=== PATIENT | female | born 1990 | race African-American/Black ===

== ENCOUNTER 2022-09-17 09:16 | Emergency (ER) | payer OTHER ==
[~2022-09-17] VITALS: Ht 165.1 cm; Wt 69.5 kg
--- NOTE | 2022-09-17 09:32 | NUR ---
DR TALBOT AT BEDSIDE
[2022-09-17] MEDS ORDERED: MORPHINE SULFATE INJ 4 MG/ML DISP.SYRIN ONE (09:37)
--- NOTE | 2022-09-17 10:24 | NUR ---
SPOKE TO ELIEZER FROM [facility] ([phone]). WHIPPER ETA 30 MINS.
[2022-09-17] MEDS ORDERED: MORPHINE SULFATE INJ 2 MG/ML DISP.SYRIN IM ONE (10:30)
--- NOTE | 2022-09-17 10:44 | NUR ---
FOLLOWED UP PERSONAL FITNESS TRAINER FROM [facility], SPOKE TO DENNYS, PERSONAL FITNESS TRAINER IN 20-30 MINUTES.
--- NOTE | 2022-09-17 11:19 | NUR ---
ELIEZER PERES FROM [facility] PICKED UP PATIENT IN STABLE CONDITION. ALL BELONGINGS BROUGHT WITH THE PATIENT. PATIENT ABLE TO WALK IN STEADY GAIT.
[2022-09-17 11:21] VITALS: BP 112/70
== END 2022-09-17 11:21 | disposition home or self-care (01) ==
LOC: ER 09:19
DX: M54.50 Low back pain, unspecified (principal); M79.7 Fibromyalgia; G89.29 Other chronic pain; F10.229 Alcohol dependence with intoxication, unspecified; Z88.8 Allergy status to other drugs, medicaments and biological substances; Y90.9 Presence of alcohol in blood, level not specified
CPT/HCPCS: 99283; 96372; J2270